=== PATIENT | male | born 1985 | race Caucasian/White ===

== ENCOUNTER → 2021-03-09 02:56 | Outpatient (CLI) | payer BC, SELFPAY ==
[2021-03-09 19:14] LABS: SARS-CoV-2 RNA PCR Negative
== END ==
PROVIDERS: PCP Family Medicine; Visit Provider Family Medicine
DX: Z20.822 Contact with and (suspected) exposure to COVID-19 (principal)
CPT/HCPCS: C9803; U0003; U0005